=== PATIENT | female | born 1970 | race Hispanic/Latino ===

== ENCOUNTER 2021-08-26 22:46 | Observation (INO) | payer SELFPAY ==
[~2021-08-26] VITALS: Ht 149.9 cm; Wt 61.2 kg
[2021-08-27] VITALS (9 sets, daily range): BP systolic 114–133; BP diastolic 56–76
[2021-08-27 00:06] LABS: BASOPHILS # (AUTO) 0.1 (0.0-0.1); BASOPHILS % 0.8 % (0.0-1.0); EOSINOPHILS # (AUTO) 0.1 (0.0-0.4); EOSINOPHILS % 0.7 % (0.0-6.0); LYMPHOCYTES # (AUTO) 1.7 (1.0-3.2); LYMPHOCYTES % 22.7 % (18.0-39.1); MEAN CORPUSCULAR HEMOGLOBIN 15.9 pg (28-32); MEAN CORPUSCULAR HGB CONC 24.6 g/dL (31-35); MEAN CORPUSCULAR VOLUME 64.6 fL (81-99); MONOCYTES # (AUTO) 0.5 (0.2-0.8); MONOCYTES % 7.3 % (4.4-11.3); NEUTROPHILS # (AUTO) 4.9 (2.1-6.9); NEUTROPHILS % 67.9 % (38.7-80.0); PLATELET COUNT 364 x10e3/uL (140-360); RED BLOOD COUNT 3.14 x10e6/uL (3.6-5.1); RED CELL DISTRIBUTION WIDTH 23.7 % (11.7-14.4)
[2021-08-27 00:07] LABS: HEMATOCRIT 20.3 % (34.2-44.1)
[2021-08-27 00:24] LABS: ALBUMIN 3.8 g/dL (3.5-5.0); ALBUMIN/GLOBULIN RATIO 1.2 (0.8-2.0); ANION GAP 14.3 mmol/L (8-16); CALCIUM 8.9 mg/dL (8.4-10.2); CREATININE, SERUM 0.71 mg/dL (0.57-1.11); POTASSIUM 4.3 mmol/L (3.5-5.1)
[2021-08-27] MEDS ORDERED: SODIUM CHLORIDE 0.9% 250ML 250 ML IV ONE (00:30)
[2021-08-27 00:41] LABS: FERRITIN 3.15 ng/mL (4.63-204.00)
[2021-08-27] MEDS ORDERED: MEDROXYPROGESTERONE ACETATE 150 MG/ML VIAL IM ONE (09:15)
[2021-08-27] MEDS ORDERED: SODIUM CHLORIDE 0.9% 250ML 250 ML ONE (09:54)
[2021-08-27] MEDS ORDERED: SODIUM FERRIC GLUCONATE COMPLX 125 MG in SODIUM CHLORIDE 0.9% 100 ML 100 ML IV SCH (12:00)
[2021-08-27 15:56] LABS: HEMOGLOBIN 8.4 g/dL (12.0-16.0)
[2021-08-28 00:29] VITALS: BP 129/73
[2021-08-28 04:46] VITALS: BP 153/84
[2021-08-28] MEDS ORDERED: Ferrous Sulfate PO (07:45)
[2021-08-28 08:15] VITALS: BP 130/73
[2021-08-28 08:55] VITALS: BP 130/73
[2021-08-28 08:59] LABS: BASOPHILS # (AUTO) 0.1 (0.0-0.1); BASOPHILS % 0.9 % (0.0-1.0); EOSINOPHILS # (AUTO) 0.1 (0.0-0.4); EOSINOPHILS % 1.6 % (0.0-6.0); HEMATOCRIT 28.4 % (34.2-44.1); HEMOGLOBIN 8.1 g/dL (12.0-16.0); LYMPHOCYTES % 18.1 % (18.0-39.1); MEAN CORPUSCULAR HEMOGLOBIN 19.9 pg (28-32); MEAN CORPUSCULAR HGB CONC 28.5 g/dL (31-35); MEAN CORPUSCULAR VOLUME 69.8 fL (81-99); MONOCYTES # (AUTO) 0.4 (0.2-0.8); MONOCYTES % 6.8 % (4.4-11.3); NEUTROPHILS # (AUTO) 4.2 (2.1-6.9); NEUTROPHILS % 72.3 % (38.7-80.0); PLATELET COUNT 279 x10e3/uL (140-360); RED BLOOD COUNT 4.07 x10e6/uL (3.6-5.1); RED CELL DISTRIBUTION WIDTH 26.2 % (11.7-14.4)
[2021-08-28 09:20] LABS: CALCIUM 8.3 mg/dL (8.4-10.2); CREATININE, SERUM 0.63 mg/dL (0.57-1.11)
[2021-09-04] MEDS ORDERED: FERROUS SULFATE 325 MG TAB PO SCH (08:00)
== END 2021-08-28 10:38 | disposition home or self-care (01) ==
LOC: ER 23:03 → ERHOLD 08-27 00:29 → IMCU 08-27 02:50
PROVIDERS: ADMIT Internal Medicine; ATTEND Internal Medicine
DX: D25.1 Intramural leiomyoma of uterus (principal); N92.0 Excessive and frequent menstruation with regular cycle; R06.02 Shortness of breath; R00.2 Palpitations; Z20.822 Contact with and (suspected) exposure to COVID-19; D50.9 Iron deficiency anemia, unspecified; D25.2 Subserosal leiomyoma of uterus; N83.292 Other ovarian cyst, left side
CPT/HCPCS: 36415 ×2; 76830; 76856; 80048; 80053; 82728; 83010; 83540; 84466; 85014; 85018; 85025 ×2; 86850; 86900; 86920; 94799; 99283; G0378 ×2; J1050; J2916; J7050; P9016; U0002